=== PATIENT | male | born 1945 | race Caucasian/White ===

== ENCOUNTER → 2019-08-06 13:08 | Outpatient (CLI) | payer OTHER, SELFPAY ==
--- NOTE | 2019-08-06 | DI.MRI.S_ITS ---
PROCEDURE: MR SHOULDER RT WO CON INDICATIONS: Other specific arthropathies, not elsewhere classi TECHNIQUE: Noncontrast oblique coronal T2 fast spin echo with fat saturation, oblique sagittal T1 spin echo and T2 fast spin echo with fat saturation, axial T1 spin echo and T2 fast spin echo with fat saturation through the shoulder. COMPARISON: [facility], CR, XR SHOULDER 2+ VIEWS RIGHT, 07/18/2019, 12:06. [facility], CR, XR SHOULDER 2+ VIEWS RIGHT, 03/19/2019, 19:23. [facility], MR, SHOULDER WITHOUT CONTRAST, 04/18/2017, 10:46. FINDINGS: Image quality: Diagnostic. Rotator cuff: The supraspinatus tendon is completely torn and retracted beyond the level of the glenoid with corresponding muscle atrophy. The infraspinatus tendon is nearly completely torn with a few intact fibers along the posterior/inferior infraspinatus tendon present adjacent to the teres minor tendon. There is moderate infraspinatus muscle atrophy. The teres minor muscle and tendon are within normal limits. There is high grade articular surface partial thickness tearing of the distal subscapularis tendon. A full-thickness component near the rotator interval is suspected. There is corresponding mild subscapularis muscle atrophy. Bones and bursae: No acute fracture or dislocation is identified. No suspicious osseous lesions are present. Mild posterior subluxation of the humeral head with respect to the glenoid is present. There moderate degenerative changes of the glenohumeral joint. There is a moderate glenohumeral joint effusion that communicates with the subacromial subdeltoid bursa. Severe degenerative changes of the acromioclavicular joint are present. Capsule and soft tissues: Evaluation of the labrum and glenohumeral ligaments is suboptimal without intra-articular contrast. However, there is a small posterosuperior labral tear identified that extends from at least the 12 o'clock position to the 2 o'clock position. An additional posteroinferior labral tear may be present. No large paralabral cysts are evident. The long head of the biceps tendon is completely torn and retracted beyond the [id number] and beyond to the bicipital groove. There is slight increased signal about the inferior glenohumeral ligament. IMPRESSION: 1. Interval complete supraspinatus tendon tear with prominent retraction and associated muscle atrophy. 2. Near-complete infraspinatus tendon tear. A few intact fibers near the teres minor tendon are present. There is an interstitial/delaminating component to this tear. 3. High-grade partial-thickness tear of the subscapularis tendon with a probable small full-thickness tear near the rotator interval. 4. Moderate to severe degenerative changes of the right shoulder joints. 5. Small posterosuperior labral tear. Additional material on the posteroinferior labrum may be present. 6. Full-thickness tear of the long head of the biceps tendon with prominent distal retraction and beyond the [id number]. 7. Glenohumeral joint effusion. 8. Edema about the inferior glenohumeral ligament may be related to a ligamentous sprain. However, clinical correlation to exclude the possibility of adhesive capsulitis is recommended. Dictated by: Anderson Cavazos M.D. on 08/06/2019 at 14:23 Approved by: Anderson Cavazos M.D. on 08/06/2019 at 14:28
== END ==
PROVIDERS: Referring Provider Orthopaedic Surgery; Visit Provider Orthopaedic Surgery
DX: M12.811 Other specific arthropathies, not elsewhere classified, right shoulder (principal); M75.121 Complete rotator cuff tear or rupture of right shoulder, not specified as traumatic; S43.431A Superior glenoid labrum lesion of right shoulder, initial encounter; S46.111A Strain of muscle, fascia and tendon of long head of biceps, right arm, initial encounter; M25.411 Effusion, right shoulder; R60.0 Localized edema
CPT/HCPCS: 73221

== ENCOUNTER → 2019-11-15 11:19 | Outpatient (CLI) | payer OTHER, SELFPAY | PROVIDERS: Referring Provider Orthopaedic Surgery; Visit Provider Orthopaedic Surgery | DX: Z01.818 Encounter for other preprocedural examination (principal); M75.121 Complete rotator cuff tear or rupture of right shoulder, not specified as traumatic | CPT/HCPCS: 93005 ==

== ENCOUNTER → 2020-01-22 15:27 | Outpatient (CLI) | payer OTHER, SELFPAY ==
[2020-01-22 15:55] LABS: Add Manual Diff / Slide Review NO; Basophils Absolute Auto 100 /uL (0-100); Basophils Percent Auto 0.6 % (0-2); Eosinophils Absolute Auto 200 /uL (0-450); Eosinophils Percent Auto 2.4 % (2-4); Hematocrit 44.7 % (41-53); Hemoglobin 15.1 g/dL (13.5-17.5); Lymphocytes Absolute Auto 1800 /uL (1100-4500); Lymphocytes Percent Auto 21.2 % (25-40); Mean Corpuscular HGB Conc 33.7 % (30-36); Mean Corpuscular Hemoglobin 30.7 PG (26-34); Monocytes Absolute Auto 500 /uL (0-900); Monocytes Percent Auto 6.1 % (3-14); Neutrophils Absolute Auto 6000 /uL (1500-7000); Neutrophils Percent Auto 69.7 % (50-75); Platelet Count 217 X10^3/uL (150-400); Red Blood Cell Count 4.91 X10^6/uL (4.5-5.9); Red Cell Distribution Width 13.9 % (11.6-14.8); White Blood Cell Count 8.6 X10^3/uL (4.5-11.0)
[2020-01-22 17:04] LABS: BUN Creatinine Ratio 16.5 (6-22); Blood Urea Nitrogen 18 mg/dL (9-20); Calcium 9.5 mg/dL (8.4-10.2); Carbon Dioxide 24 mmol/L (22-32); Chloride 103 mmol/L (98-107); Estimated Glomerular Filt Rate > 60.0 mL/min (>60); Glucose 234 mg/dL (80-110); HEMOLYSIS < 15 (0-50); Potassium 4.4 mmol/L (3.4-5.1); Sodium 136 mmol/L (137-145)
== END ==
PROVIDERS: Referring Provider Orthopaedic Surgery; Visit Provider Orthopaedic Surgery
DX: Z01.812 Encounter for preprocedural laboratory examination (principal)
CPT/HCPCS: 36415; 80048; 85025

== ENCOUNTER → 2020-01-31 08:22 | Outpatient (CLI) | payer OTHER, SELFPAY ==
[2020-02-01 18:21] LABS: COVID19 Sendout Not Detected (Not Detect)
== END ==
PROVIDERS: Visit Provider Physician Assistant
DX: Z11.9 Encounter for screening for infectious and parasitic diseases, unspecified (principal)
CPT/HCPCS: 87635

== ENCOUNTER 2020-02-03 06:06 | Inpatient (IN) | payer OTHER, SELFPAY ==
[2020-01-28 13:25] VITALS: BMI 29.6
[2020-02-03] VITALS (14 sets, daily range): BP systolic 113–142; BP diastolic 58–81; PULSE 69–83; RESP 16–19; TEMP 36.1–36.6; O2SAT 19–98; BMI 27.6
--- NOTE | 2020-02-03 06:00 | DI.RAD.S_ITS ---
PROCEDURE: XR SHOULDER RT 1V INDICATIONS: post op total shoulder TECHNIQUE: Single views of the shoulder were acquired. COMPARISON: None. FINDINGS: Bones: No fractures or dislocations. No suspicious bony lesions. Visualized ribs appear intact. Postsurgical changes related to reverse polarity shoulder arthroplasty. Overlying postsurgical changes. IMPRESSION: Expected postoperative appearance Dictated by: Savage Thomas M.D. on 02/03/2020 at 11:39 Approved by: Savage Thomas M.D. on 02/03/2020 at 11:40
[2020-02-03] MEDS: ACETAMINOPHEN 325 MG TABLET 975 MG PO ×3 (07:10→20:31)
[2020-02-03] MEDS: PREGABALIN 75 MG CAPSULE PO (07:11)
[2020-02-03] MEDS: CELECOXIB 200 MG CAPSULE PO (07:11)
--- NOTE | 2020-02-03 07:30 | PM.PREOP ---
Pre-operative Note COVID-19 COVID-19 status: Negative Result date/Date tested (Pos, Neg/Pending): 01/31/20 Interval Note History & Physical reviewed/Exam performed by Physician: Yes Changes to H&P: No
--- NOTE | 2020-02-03 07:46 | SUR.PREOP ---
Block start time [0744] . Monitoring initiated and maintained throughout procedure. Oxygen and medications given per anesthesiologist instructions. Patient remained stable throughout procedure, no adverse reactions noted. Block end time [0746].
[2020-02-03] MEDS: LACTATED RINGERS 1,000 ML 42 ML IV (07:50)
[2020-02-03] MEDS: CEFAZOLIN 2 GM/100 ML FROZ.PIGGY IV (07:50)
[2020-02-03] MEDS: TRANEXAMIC ACID 1,000 MG VIAL 1000 MG INJ (08:11)
--- NOTE | 2020-02-03 08:22 | SUR.OPER ---
Beach chair with Schlein shoulder positioner. Lower body on padded OR bed. Head in foam padded head cradle, secured with straps. Non-operative arm secured <90 degrees abduction. Pillow under knees. Safety belt at thigh. Cloth tape over blanket over lower legs.
[2020-02-03] MEDS: BUPIVACAINE 0.5% W/ EPI (PF) 30 ML VIAL INJ (08:32)
--- NOTE | 2020-02-03 08:49 | PM.PROC.1 ---
Procedures Date/Time Date of procedure: 02/03/20 Time of procedure: 07:40 General Procedure description: Ultrasound guided interscalene brachial plexus nerve block for post op pain control after right total shoulder arthroplasty by Dr. Roach. Risk and benefits of procedure discussed with patient. ASA monitoring applied to patient. O2 given via nasal cannula. 2 mg Versed given for procedural sedation. Skin site was prepped with chlorhexidine and allowed to fully dry. Sterile gloves, mask, hat and probe cover were used to maintain sterility. 2% lidocaine and 30ga needle was used to make a small skin wheal at needle insertion site. Under ultrasound guidance, a 21ga 50mm Pajunk needle was directed into the interscalene groove (middle/anterior scalenes) near the brachial plexus. Patient reported no parasthesias. After negative aspiration, 20 mL 0.5% ropivicaine and 10mg dexamethasone were injected around brachial plexus. Patient tolerated procedure well.
--- NOTE | 2020-02-03 09:52 | PM.OP.1 ---
Operative Date/Time/Diagnoses Date of procedure: 02/03/20 Time of procedure: 09:52 Pre-op diagnosis: Massive irreparable chronic right rotator cuff tear with early rotator cuff arthropathy Post-op diagnosis: same Procedure & Clinicians Procedure: Right reverse total shoulder replacement Same procedure as scheduled: Yes Indications: The patient is had chronic right shoulder pain unresponsive to nonoperative therapies. Radiographic studies have revealed changes consistent with a massive rotator cuff tear and arthritis. They have elected to proceed with reverse total shoulder replacement after discussion of the risks benefits and alternatives. Risks discussed included but were not limited to: Failure to improve, instability, infection, nerve damage, deep venous thrombosis, pulmonary embolism, stroke, coma, myocardial infarction and . Surgeon: Real Roach Independent Video Producer: Jin Arce Click Yes if Unassisted: No Anesthesia Type: General, Peripheral nerve block and Local Operative Notes Findings: Massive rotator cuff tear of subscapularis, supraspinatus and infraspinatus with early arthritic change and secondary bone remodeling of the greater tuberosity. Closure Type: primary Specimen(s): none sent Prosthetic devices, grafts, tissues, transplants, or devices: Implants used in this procedure were manufactured by the [employer] and included an RSP reverse total shoulder system with a 30 mm glenoid base plate, 4 locking screws measuring 38, 26, 22 and 14 mm in length, a 32 mm neutral glenoid head with retaining screw, a 12 mm humeral stem and a 32 mm +4 semi constrained humeral socket insert. Applied: drain(s) and implant(s) Estimated Blood Loss (mL): 200 Blood products transfused: none Procedure in detail: The patient was seen in the preoperative area where they identified the right shoulder as the operative site and this was marked with my initials. They received preoperative antibiotics and underwent the induction of an interscalene block. They were taken to the operating room and placed on the operating room table in a supine position with the underwent the induction of a general anesthetic. There were then repositioned in the ?beach chair? position using a dedicated positioner. All pressure points were well padded. The knees were slightly bent to prevent tension on the sciatic nerves. The right arm was prepared from the fingertips to the base of the neck with ChloraPrep in the usual fashion and draped through sterile drapes. An approximately 15 cm incision was created starting at the clavicle just above the coracoid and going to the deltoid insertion. The deltopectoral interval was used to access the shoulder taking the vein to the medial side. The vein was protected throughout the case. The upper 1 cm of the pectoralis major was released. The bicepital groove was identified and used as a guide to releasing the anterior scar tissue. The biceps itself had ruptured. The subscapularis had previously completely ruptured. The shoulder was dislocated and a proximal humeral osteotomy performed using an extramedullary guide. A proximal humeral protector was then placed. Retractors were placed access the glenoid. A 360 degree release was performed of the glenoid tissues with care being taken to protect the axillary nerve. The guide was used to drill the guide hole in the center of the inferior glenoid. The tap was placed and used as a guide for the reamer. The tap was then removed and the glenoid base plate inserted. The glenoid bone was very soft and the central screw did strip. The peripheral locking screws were then placed through the appropriate guide, and this provided adequate fixation. A trial glenoid head was applied. We then turned our attention to the humerus. The proximal humeral protector was removed. Cylindrical reamers were used to size the canal. Broaching was then performed beginning with a small broach and working up until a line to line fit with the reamer was obtained. The guide for the proximal metaphyseal reamer was then applied and the metaphysis was reamed appropriately. The trial metaphyseal portion of the body was then applied to the broach. Trial reductions were performed and the size of the glenoid head and the cup were optimized. Stability was checked in maximal internal and external rotation and range of motion was checked to allow access to the top of the head, internal rotation to an excess of 50? in the ?scarecrow position? and the ability to reach the groin. The appropriate final prosthetic components were then opened. The glenoid head was impacted into position and checked for rotational and axial stability before placing the set screw. The humeral prosthetic was then impacted into position. The humeral cup was placed. The joint was relocated and irrigated. A deep drain was placed. The deltopectoral interval was reapproximated with 0 Vicryl. Subcutaneous layer was closed with interrupted 3-0 Vicryl and skin with a running 3 0 V lock suture. Subcutaneous tissues were then infiltrated with 0.5% Marcaine for postoperative pain control. An [employer] dressing was applied and the patient's arm was placed in a sling. The patient was then transferred to the recovery room in good condition having tolerated the procedure well. Complications: none Post-operative Condition: stable Disposition: PACU Plan for aftercare: The patient will be allowed to do pendulum exercises only for the 1st 6 weeks due to the tenuous fixation of the glenoid. He will then be initiated on active elevation.
[2020-02-03] MEDS: LACTATED RINGERS 1,000 ML 125 ML IV ×2 (10:37→19:01)
--- NOTE | 2020-02-03 14:54 | PT.IIE ---
Current Diagnoses Unspecified rotator cuff tear or rupture of right shoulder, not specified as traumatic (02/03/20) Surgery Performed Operation Date: 02/03/20 07:45 Actual Procedures p Total Shoulder Arthroplasty - Reverse(Right) - Real Roach MD Surgical History (Last Updated 01/28/20 @ 14:38 by Lenka Remy RN) History of vasectomy (Acute) Hx of arthroscopy of shoulder (Acute) Hx of bilateral cataract extraction (Acute 2020) Hx of LASIK (Acute) Hx of sinus surgery (Acute) Medical History (Last Updated 01/28/20 @ 14:38 by Lenka Remy RN) Arthritis (Acute) Diabetes (Acute) HLD (hyperlipidemia) (Acute) HTN (hypertension) (Acute) Seasonal allergies (Acute) Physical Therapy Inpatient Evaluation/Re-Eval M1 PT/OT-IP Prior Functional Status Start: 02/03/20 13:16 Freq: NEEDED Status: Active Protocol: Document 02/03/20 14:36 AW (Rec: 02/03/20 14:54 AW [id number]) Medical Review Prior Functional Status Medical History Reviewed Yes Communication WNL. Pt is an effective verbal communicator Mobility and Gait WNL. Pt is an independent community ambulator. He is right-handed. Activities of Daily Living and IADL's IND Prior Functional Level (Other details) Pt is an active driver trainee Social History Household Members spouse,family Living Arrangements Mobile home Number of Floors (Floors) One Floor Number of Stairs To Enter/Railing? 4 TAISHA with L rail ascending Home Environment Standard Height Toilet,High Toilet,Walk in Shower Home Equipment Straight Cane,Hand Held Shower Employment Status Retired Additional Social History Comment Pt is a [place] who lives with his , Erica, and their daughter, Jasmyn. Pt's 8 and 3-yo grandchildren also live with him. M2 PT-IP Current Condition Start: 02/03/20 13:16 Freq: NEEDED Status: Active Protocol: Document 02/03/20 14:36 AW (Rec: 02/03/20 14:54 AW [id number]) Physical Therapy Current Condition Current Condition Evaluation Date 02/03/20 Treatment Diagnosis s/p reverse R TSA; decreased independence with ADL's Onset Date 02/03/20 Precautions Shoulder Precautions Sling,Internal Rotation to Body,No External Rotation,No Abduction,Pendulums Brace shoulder sling for all OOB tasks and mobility Other Precautions pendulums only for six weeks M3 PT-IP Subjective Start: 02/03/20 13:16 Freq: NEEDED Status: Active Protocol: Document 02/03/20 14:36 AW (Rec: 02/03/20 14:54 AW [id number]) Subjective Physical Therapy Visit Type Type Initial Evaluation Visit Start Time 13:45 Visit Stop Time 14:07 Total Visit Minutes 22 Physical Therapy Visit Comments Patient Comments Pt is feeling good and willing to participate with PT Patient Goals Pt plans to return home with his family Therapy Pain Assessment Pain When Pain Assessed During Mobility Pain Present Pain Present Denied Pain M4 PT-IP Mobility and Gait Start: 02/03/20 13:16 Freq: NEEDED Status: Active Protocol: Document 02/03/20 14:36 AW (Rec: 02/03/20 14:54 AW [id number]) PT-Bed Mobility Assessment Supine to Sit Supine to Sit Contact Guard Assistance Sit to Supine Sit to Supine Standby Assistance Scooting Scooting to Edge of Bed Standby Assistance PT-Transfer Assessment Sit to and From Stand Sit to and from Stand Independent Equipment Transfer Assistive Device Gait Belt Orthotic/Prosthetic Devices or Brace: Yes Transfers Transfer Destination Bed Transfer Technique pt ambulated IND Transfer Ability Level of Assist Standby Assistance Comments Mobility Comments Pt was reclined in bed upon PT arrival. BP 123/67 HR 88. He completed supine to sit CGA and cues to push with his LUE. He was able to sit EOB with and without UE support. He completed sit to stand SBA and ambulated around the room SBA before stopping at the mirror for teaching on proper sling fit. Pt walked to the toilet and transferred to and from SBA to void. Pt then requested return to bed for rest. He transferred back to supine SBA where he was postioned with call light and all needs within reach. Gait Assessment Gait Gait Assistance Required: Standby Assistance Distance (Feet) 30 Able to Maintain Weight Bearing Status Yes During Gait Assistive Devices Assistive Device Gait Belt Gait Deviations General Gait Pattern Decreased Stride Length,Flexed Trunk Factors Limiting Gait Function Factors Limiting Gait Function Limited Range of Motion Stair Climbing Assessment Comments Stair Climbing Comments Not assessed. PT-Balance Assessment Sitting Balance and Reactions Static Sitting Balance Ability Normal Dynamic Sitting Balance Ability Normal Standing Balance and Reactions Static Standing Balance Ability Good Dynamic Standing Balance Ability Good M5 PT-IP Objective Assessments Start: 02/03/20 13:16 Freq: NEEDED Status: Active Protocol: Document 02/03/20 14:36 AW (Rec: 02/03/20 14:54 AW [id number]) Orientation Orientation/Cognition Level of Alertness Alert Orientation Name,Day of Week,Place, Situation Language Function Ability No Deficits Noted Safety Awareness Understands Safety Issues Memory Description No Deficits Noted Gross Range of Motion Upper Extremity ROM Assessment Right Impaired Lower Extremity ROM Assessment Within Functional Limits Strength Upper Extremity Strength Assessment Right Impaired Lower Extremity Strength Assessment Within Functional Limits Comments Strength Comments LUE and BLE grossly 5/5 Coordination Assessment Gross Coordination Gross Coordination WNL Sensation Assessment Sensation Gross Sensation Right UE Impaired Sensation Description Numbness,Tingling Comments Sensation Comments Pt reports tingling in right hand. RUE is otherwise numb. M6 PT-IP Treatment Start: 02/03/20 13:16 Freq: NEEDED Status: Active Protocol: Document 02/03/20 14:36 AW (Rec: 02/03/20 14:54 AW [id number]) Physical Therapy Treatment Exercises Exercises Shoulder Pendulums,Elbow Flexion/Extension,Wrist ROM, Hand ROM Education Education Provided Precautions,Weight Bearing Status,Post-Op Packet,Safety Brace Education [place],Patient Other Treatments Other Treatment Performed Pt was instructed in optimal fit for the shoulder sling using mirror for visual feedback. Pt was able to return teach. Pt was instructed that ortho had ordered pendulums only for the shoulder and to allow only forward/backward pendulum movement. Pt was provided handout on ADL management and AROM for hand, wrist, and elbow. M7 PT-IP Assessment and Plan Start: 02/03/20 13:16 Freq: NEEDED Status: Active Protocol: Document 02/03/20 14:36 AW (Rec: 02/03/20 14:54 AW [id number]) PT Summary Assessment and Plan Potential Rehabilitation Potential Excellent Status of Condition at Evaluation Evolving Summary Impairments ROM,Strength,Sensation,Bed Mobility,Transfers Assessment Summary Lm is a 74 yo man seen for PT evaluation on POD0 following reverse R TSA. He is independent in all regards at baseline. He lives with his , daughter, and grandchildren. He will have assist at home as needed. Pt required CGA for bed mobility and SBA for transfers and gait on evaluation. PT will continue to follow after return of full sensation in RUE. Goals Bed Mobility Goal Standby Assistance Transfer Goal Independent Gait Goal Independent Gait Distance 200 Other Goals - up/down 4 steps with left rail ascending SBA Frequency of Treatment Frequency Of Treatment Twice a Day Treatment Plan Physical Therapy Treatment Plan Bed Mobility Training,Transfer Training,Gait Training, Therapeutic Exercise,Balance Retraining,Post Op Education, Discharge Planning,Hot or Cold Pack Other Recommendations and Next Treatment progress independent gait; Focus assess safety on stairs; review precautions and pendulums; review sling fitting Recommendations To Nursing Amount of Assist Needed Standby Assistance Discharge Recommendations PT Discharge Recommendations Home with Assistance Transportation Needs at Discharge Private Vehicle
--- NOTE | 2020-02-03 17:43 | PC.NURSE ---
Addendum entered by Ligia Ramos R.N. 02/03/20 23:34: Stable post op course. Denies discomfort. Call light w/in reach, bed alarm on for pt safety. Continue w/plan of care. Original Note: Pt sitting in chair, Denies discomfort at this time. Lungs clear, SpO2 98% RA Dsg to right shoulder CDI. Hemavac intact/patent. IVF LR @ 125cc/hr infusing via pump Stable post op course. [place] light w/in lata, pt calls appropriately for needs.
[2020-02-03] MEDS: DOCUSATE 100 MG CAPSULE PO (20:30)
[2020-02-03] MEDS: ASPIRIN EC 81 MG TABLET PO (20:31)
[2020-02-03] MEDS: INSULIN GLARGINE 100 UNIT/ML 3ML PEN 20 UNIT SUBCUT (21:33)
[2020-02-04] MEDS: OXYCODONE IR 5 MG TABLET PO ×3 (00:01→08:22)
[2020-02-04 04:58] VITALS: BP 124/77; PULSE 74; RESP 18; TEMP 36.8; O2SAT 94
[2020-02-04 05:39] LABS: Hematocrit 39.7 % (41-53); Hemoglobin 13.4 g/dL (13.5-17.5); Mean Corpuscular HGB Conc 33.9 % (30-36); Mean Corpuscular Volume 91.5 fL (80-100); Platelet Count 194 X10^3/uL (150-400); Red Blood Cell Count 4.33 X10^6/uL (4.5-5.9); Red Cell Distribution Width 13.7 % (11.6-14.8); White Blood Cell Count 12.7 X10^3/uL (4.5-11.0)
--- NOTE | 2020-02-04 07:22 | P.DS_ITS ---
History of Present Illness History of Present Illness Date Patient Seen: 02/04/20 Time Patient Seen: 07:22 Chief complaint: INPT Narrative: The history and physical are contained in the chart in a previously completed note. Please refer to this note for that information. Discharge Providers Provider Date of admission: 02/03/20 06:06 Discharge Date: 02/04/20 Consults: 02/03/20 06:00 Consult to Anesthesiology Routine Comment: Consulting Provider: Anesthesiologist Reason for consultation: Regional block for post operative pain control 02/03/20 10:31 Consult to Discharge Planning Routine Comment: Consult to Physical Therapy Evaluate & Treat Comment: Pendulums only for the first six weeks Physician Instructions: Evaluate and Treat Discharge provider: Real Roach MD Summary Hospital Course Discharge Diagnosis: Massive irreparable rotator cuff tear with early rotator cuff arthropathy, right shoulder. Hospital Course: Patient was admitted to the hospital and taken directly to the operating room on February 03, 2020 where he underwent a right reverse total shoulder replacement. He was discovered to have soft bone in the glenoid which compromised fixation of the base plate but no specific complications were encountered. Pain control was excellent postoperatively and no postoperative complications occurred. On postoperative day 1 he was pain free and ready for discharge. Status at Discharge Cognitive/behavioral status at discharge: oriented Functional status at discharge: independent ambulation Overall status at discharge: patient is progressing back to baseline Time Spent with Patient Time spent: Less than 30 minutes Exam Vital Signs (past 8 hours): - 02/04/20 04:58 Temperature 98.3 F Pulse Rate 74 Respiratory Rate 18 Blood Pressure 124/77 Pulse Oximetry 94 Oxygen Delivery Method Room Air Oxygen Flow Rate 0 Narrative Exam Narrative: Right shoulder wound is dressed with no drainage on the bandage. Light touch is intact in the radial, ulnar, median, muscular cutaneous and axillary nerve distribution. He can extend his thumb, abduct his thumb, abduct his fingers and can fire his biceps and deltoid. Objective Labs Result Diagrams: 02/04/20 05:25 Labs: Laboratory Results - last 24 hr 02/04/20 05:25 WBC 12.7 H RBC 4.33 L Hgb 13.4 L Hct 39.7 L MCV 91.5 MCH 31.0 MCHC 33.9 RDW 13.7 Plt Count 194 Discharge Assessment & Plan Assessment and Plan Assessment: Stable postoperative day 1 status post right reverse total shoulder replacement. Plan of Treatment: The patient will be discharged home today. Follow up will be in my office in 10-14 days. We will discontinue his drain before discharge. He has been prov ided with a prescription for oxycodone and recommendations for the use of Tylenol and low-dose aspirin for DVT prophylaxis. He has been instructed to use his sling when he is not doing pendulum exercises and to restrict the use of his arm to below shoulder level in front of his body for 6 weeks. Discharge Plan Discharge Plan Patient Disposition: Home Discharge orders & Medications Prescriptions: New acetaminophen 325 mg Tablet 975 mg PO TID 30 Days Qty: 270 RF: 0 aspirin 81 mg Tablet,Delayed Release (Dr/Ec) 81 mg PO BID 42 Days Qty: 84 RF: 0 oxycodone 5 mg Tablet 5 mg PO Q4H PRN (Reason: Pain, Moderate (4-6)) Qty: 40 RF: 0 Continued cholecalciferol (vitamin D3) [Vitamin D3] 2,000 UNIT capsule 1,000 unit PO QDAY Qty: 0 RF: 0 atorvastatin 40 MG tablet 40 mg PO QDAY Qty: 0 RF: 0 Lantus U-100 Insulin 100 unit/mL Solution 20 unit SUBCUT BID RF: 0 cetirizine 10 mg Tablet 10 mg PO DAILY PRN (Reason: Seasonal allergies) RF: 0 losartan 25 mg Tablet 25 mg PO DAILY RF: 0 empagliflozin-metformin 5-1,000 mg Tablet 2 tab PO QAM RF: 0 semaglutide 0.25 mg or 0.5 mg(2 mg/1.5 mL) Pen Injector 0.5 mg SUBCUT QWEEK RF: 0 Follow up/Referrals: Real Roach MD [Physician] - 2 Weeks Discharge Health Status Multidrug resistant organism: No MDRO Diet/Activity/Treatments Diet: Diet as Tolerated and Carb-consistent/Diabetic Activity: You may use your right hand in front of your body below shoulder level. Please wear the sling except for when you are doing pendulum exercises. Cold/Heat Therapy: Apply ice to the right shoulder for 15 minutes of every hour as needed for pain control. Skin/Wound/Dressing Care Report to your healthcare provider any signs of infection, such as:: chills, fever, night sweats, increased pain, unusual drainage and unusual redness Dressing: You may shower with the dressing in place. Leave the dressing intact until follow-up. If the central strip of the dressing becomes saturated with either water or blood, please call the office to have it evaluated. Visit Report/Discharge Packet Instructions: DI for Prescription Opioid Use, DI for Shoulder Replacement Stand Alone Forms: Surgery Discharge
[2020-02-04 07:30] VITALS: O2SAT 96
[2020-02-04 08:00] VITALS: BP 123/63; PULSE 75; RESP 16; TEMP 36.6; O2SAT 96
[2020-02-04] MEDS: LOSARTAN 25 MG TABLET PO (08:20)
[2020-02-04] MEDS: DOCUSATE 100 MG CAPSULE PO (08:22)
[2020-02-04] MEDS: CHOLECALCIFEROL (VITAMIN D3) 1,000 UNIT TABLET 1000 UNIT PO (08:22)
[2020-02-04] MEDS: ACETAMINOPHEN 325 MG TABLET 975 MG PO (08:22)
[2020-02-04] MEDS: ATORVASTATIN 20 MG TABLET 40 MG PO (08:22)
[2020-02-04] MEDS: ASPIRIN EC 81 MG TABLET PO (08:22)
--- NOTE | 2020-02-04 09:35 | PT.IPTN ---
Current Diagnoses Unspecified rotator cuff tear or rupture of right shoulder, not specified as traumatic (02/03/20) Surgery Performed Operation Date: 02/03/20 07:45 Actual Procedures p Total Shoulder Arthroplasty - Reverse(Right) - Real Roach MD Physical Therapy Treatment Note M2 PT-IP Current Condition Start: 02/03/20 13:16 Freq: NEEDED Status: Active Protocol: Document 02/04/20 09:12 TP (Rec: 02/04/20 10:15 TP [id number]) Physical Therapy Current Condition Current Condition Evaluation Date 02/03/20 Treatment Diagnosis s/p reverse R TSA; decreased independence with ADL's Onset Date 02/03/20 Precautions Shoulder Precautions Sling,Internal Rotation to Body,No External Rotation,No Abduction,Pendulums Brace shoulder sling for all OOB tasks and mobility Other Precautions pendulums only for six weeks M3 PT-IP Subjective Start: 02/03/20 13:16 Freq: NEEDED Status: Active Protocol: Document 02/04/20 09:12 TP (Rec: 02/04/20 10:15 TP [id number]) Subjective Physical Therapy Visit Type Type Treatment Note Visit Start Time 09:12 Visit Stop Time 09:35 Total Visit Minutes 23 Notes Student YUSUF Casey supervised by YUSUF Ceja. Number of GREEN BUILDING DESIGN SPECIALIST Visits 1 Physical Therapy Visit Comments Patient Comments Pt is feeling good and willing to participate with PT Patient Goals Pt plans to return home with his family Therapy Pain Assessment Pain When Pain Assessed During Mobility Pain Present Pain Present Denied Pain M4 PT-IP Mobility and Gait Start: 02/03/20 13:16 Freq: NEEDED Status: Active Protocol: Document 02/04/20 09:12 TP (Rec: 02/04/20 10:15 TP [id number]) PT-Bed Mobility Assessment Supine to Sit Supine to Sit Standby Assistance Scooting Scooting to Edge of Bed Standby Assistance PT-Transfer Assessment Sit to and From Stand Sit to and from Stand Independent Equipment Transfer Assistive Device Gait Belt Orthotic/Prosthetic Devices or Brace: Yes Transfers Transfer Destination Chair Transfer Technique pt ambulated IND Transfer Ability Level of Assist Standby Assistance Comments Mobility Comments Pt reclined in bed upon PT arrival. Pt demonstrates good verbal recall of shoulder precautions and pendulum techniqe. Supine to sit on L EOB, SBA. Denied pain with bed mobility. Sitting balance good for donning of gait belt. Sit<>stand SBA. Ambulation into hallway around nurse's station 2x, approximately 425' , SBA-IND. Ascend/descend 3 stairs x2, step to gait pattern on first attempt, step through on second attempt, IND with BLE weakness noted with eccentric control on descent. In room, pt review and education of proper technique for pendulums (flex/ ext), scap retraction, elbow flex/ext, wrist flex/ext and ulnar/radial deviation, finger flex/ext. Stand to sit at chair, IND. Pt donned and doffed sling, with assist to reach strap across back. Review of handout in post-op packet. Pt denied further questions and is ready for discharge. Pt positioned in chair with call light and all other needs in reach. Nursing staff noted of progress and ready to discharge. Gait Assessment Gait Gait Assistance Required: Independent,Standby Assistance Distance (Feet) 425 Able to Maintain Weight Bearing Status Yes During Gait Assistive Devices Assistive Device Gait Belt Gait Deviations General Gait Pattern Decreased Stride Length,Flexed Trunk Factors Limiting Gait Function Factors Limiting Gait Function Limited Range of Motion Comments Gait Comments see mobility comments. Stair Climbing Assessment Evaluation Level of Assist On Stairs Independent Devices Stair Climbing Assistive Devices None Technique/Endurance Stair Climbing Direction Ascend and Descend Stair Climbing Technique Step Over Step,Step to Step Number of Steps Climbed 3 Stair Climbing Set # Repetitions (reps) 2 Comments Stair Climbing Comments Pt ascend/descend 3 stairs x 2 using step-to gait pattern for first rep and step-through gait pattern for second rep. R rail ascending used for descent. PT-Balance Assessment Sitting Balance and Reactions Static Sitting Balance Ability Normal Dynamic Sitting Balance Ability Normal Standing Balance and Reactions Static Standing Balance Ability Good Dynamic Standing Balance Ability Good M5 PT-IP Objective Assessments Start: 02/03/20 13:16 Freq: NEEDED Status: Active Protocol: Document 02/03/20 14:36 AW (Rec: 02/03/20 14:54 AW [id number]) Orientation Orientation/Cognition Level of Alertness Alert Orientation Name,Day of Week,Place, Situation Language Function Ability No Deficits Noted Safety Awareness Understands Safety Issues Memory Description No Deficits Noted Gross Range of Motion Upper Extremity ROM Assessment Right Impaired Lower Extremity ROM Assessment Within Functional Limits Strength Upper Extremity Strength Assessment Right Impaired Lower Extremity Strength Assessment Within Functional Limits Comments Strength Comments RADHA hutton BLE grossly 5/5 Coordination Assessment Gross Coordination Gross Coordination WNL Sensation Assessment Sensation Gross Sensation Right UE Impaired Sensation Description Numbness,Tingling Comments Sensation Comments Pt reports tingling in right hand. RUE is otherwise numb. M6 PT-IP Treatment Start: 02/03/20 13:16 Freq: NEEDED Status: Active Protocol: Document 02/04/20 09:12 TP (Rec: 02/04/20 10:15 TP [id number]) Physical Therapy Treatment Exercises Exercises Shoulder Pendulums,Elbow Flexion/Extension,Wrist ROM, Hand ROM Education Education Provided Precautions,Weight Bearing Status,Post-Op Packet,Safety Brace Education [place],Patient Other Treatments Other Treatment Performed Pt demonstrated good carryover in optimal fit for the shoulder sling . Pt was instructed that ortho had ordered pendulums only for the shoulder and to allow only forward/backward pendulum movement. Pt reviewed handout on ADL management and AROM for hand, wrist, and elbow. M7 PT-IP Assessment and Plan Start: 02/03/20 13:16 Freq: NEEDED Status: Active Protocol: Document 02/04/20 09:12 TP (Rec: 02/04/20 10:15 TP [id number]) PT Summary Assessment and Plan Potential Rehabilitation Potential Excellent Status of Condition at Evaluation Evolving Summary Impairments ROM,Strength,Sensation,Bed Mobility,Transfers Assessment Summary Pt met all physical therapy goals and is ready for discharge home with assistance when medically clear. Goals Bed Mobility Goal Standby Assistance Transfer Goal Independent Gait Goal Independent Gait Distance 200 Other Goals - up/down 4 steps with left rail ascending SBA Frequency of Treatment Frequency Of Treatment Twice a Day Treatment Plan Physical Therapy Treatment Plan Bed Mobility Training,Transfer Training,Gait Training, Therapeutic Exercise,Balance Retraining,Post Op Education, Discharge Planning,Hot or Cold Pack Other Recommendations and Next Treatment Pt met all physical therapy Focus goals and is ready for discharge home with assistance when medically clear. Recommendations To Nursing Amount of Assist Needed Standby Assistance Discharge Recommendations PT Discharge Recommendations Home with Assistance Transportation Needs at Discharge Private Vehicle Note reviewed by Samantha Oden PTA
--- NOTE | 2020-02-04 10:41 | PC.NURSE ---
Day shift: Paperwork signed and all questions answered. Pt has MD script and his personal belonings as well as his home meds from pharmacy. Dressing is CDI. Medicated for pain for car ride home. Taken to car in [place] by this comic writer. His spouse is driving him home.
--- NOTE | 2020-02-04 10:54 | CM.DANOTE ---
Patient is a 74 year old male who was admitted on 02/03/20 for Rotator Cuff Repair. Pt has [facility] for insurance and his PCP is Dr. Krunal Panchal on the [employer]. EMR was reviewed. Per Ortho , pt tolerated procedure well and stable for discharge home with family assist today and no identified barriers to discharge. Per PT, recommending safe d/c home with family assist today after stair training. SW met bedside with pt and explained role and pt confirms that he lives in [place] in a mobile home with his spouse, step Dtr, and 2 grandsons ages 3 and 8. Pt very friendly and talkative about his family and help with caregiving to grandsons and pt quite active and independent at baseline. Pt denies any hx of HH or SNF and DPOA is his spouse. Pt's spouse called while SW bedside and she is agreeable with leaving [place] right now to come provide transport home for the pt. Preference is home and no anticipated needs. Plan: Patient to d/c home this morning via spouse POV and family available for assist. No SW needs at this time. FRANCISCO Nixon Discharge Planning/Care Management CM Discharge Assessment Start: 02/04/20 10:52 Freq: Status: Discharge Protocol: Document 02/04/20 10:52 BF (Rec: 02/04/20 10:54 [id number]) Discharge Planning Assessment Assigned Dealer Sales Rep FRANCISCO Calderon DPOA/Assigned Designee Name spouse Advance Directives? No Advance Directives on File No History Provided By Patient,Medical Record Has Patient been admitted in last 30 No days? Prior Living Arrangements Mobile home Household Members spouse,family Type of transporation used prior to Drives own vehicle admit Independent with ADL's Yes Is patient alert and oriented? Yes Caregiver for Another Yes: has 2 grandsons in the home they help with Community Services used prior to Physical Therapy admission: Patient/Family Preference OP PT Therapy Barriers to Discharge No Discharge Plan Home Community Services Physical Therapy Transportation Arrangement Spouse headed to the hospital to provide transport home Referrals Initiated None needed Whiteboard Updated in Patient Room with Yes name and ext. # of Dealer Sales Rep Review Status In Process Please Provide Date Initial DC 02/04/20 Assessment Was Performed Next Review Type Continued Stay Review Pre-Anesthesia Assessment Start: 01/28/20 13:25 Freq: Status: Discharge Protocol: Document 01/28/20 13:25 CAB (Rec: 01/28/20 14:02 CAB [id number]) Pre-Anesthesia Assessment Preferred Name Don Patient Information Reviewed Via Phone Assessment Assessment Completed With Patient Diagnostic Results BMP/CMP,CBC,EKG Comment Labs 01/22/20, EKG 11/15/19 @ [facility] -COVID screen 01/31/20 Primary Care Provider Deedee Wilkes Seen Specialist in Last 12 Months Yes Specialist Seen Opthamologist/Advertising Dispatch Clerks Supervisor, Orthopedist Primary Language Yi Water Quality Technician Required No Height 172.72 cm Weight 88.451 kg Body Mass Index (BMI) 29.6 Hearing Ability Normal Visual Assist Glasses Dentition Type Partial- Upper & Lower Other Aids No Hx Anesthesia Reactions No Hx Family Anesthesia Reaction No Hx Malignant Hyperthermia No Hx Blood Transfusions No Anesthesia Review Requested No alcohol intake current alcohol intake frequency a few times a month Smoking Status Never smoker Substance Use Type does not use Pain Present Pain Reported Musculoskeletal Symptoms Joint Pain,Limited Range of Motion History of Falling (Recent or History of No ) Patient is completely paralyzed or No completely immobile Mental Status Oriented to own ability Is patient on oxygen? No Does patient have VALDEZ/SOB No Hx Sleep Apnea No Currently Taking a Beta Jonah No Can You Climb a Flight of Stairs Without Yes SOB Hx Chest Pain No Hx SOB No Hx Syncope or Dizziness No Anti-Coagulant Therapy No Has a Design Tech No Cardiac Testing No Hx Pacemaker/ICD No Pacemaker Rep Required? No Cardiac Clearance Received Not Applicable Diet Type At Home Regular dysphagia No Urinary Catheter Present No Hx Urinary Self Catheterization No Diabetes Yes: Pt checks blood sugar twice a day HgbA1C 7.4 Date 08/28/19 Comment [facility] Hx Drug Resistant Organism No Presence of External or Internal Medical Yes: Bilateral eye lens Devices Have you had any close contact with No someone diagnosed with COVID-19? Marital Status Lives With spouse,family Prior Living Arrangements Mobile home Support System Child/Children,Spouse Does the Patient Have Assistance After Yes Surgery Patient Discharge Plan Description Return Home Comment Pt advised overnight length of stay per surgeon Feels Safe in Current Environment Yes Been Physically Hurt or Threatened By a No Person in Current Environment Do you have thoughts of harming yourself None or others? Are you currently considering suicide? No Do you have a plan to hurt yourself or No Plan others? Do You Have Any Spiritual Beliefs That No May Affect Your HC Choices? Do You Have Any Cultural Practices That No May Affect Your HC Choices? Comment Evangelical Who Can We Speak to About Patient's Care Family, friends Identifying Code for Release of Patient Declines to issue Information Health Care Proxy/Next of Kin Erica () Health Care Proxy Emergency Contact Name Erica () Agueda ( daughter) Emergency Contact Phone Number Erica: [phone] Agueda : [phone] Advance Directives? No Power of Executive Associate No PAC Instructions Diabetes instructions,Durable medical equipment,Medications to take/avoid,Nasal antibiotic ,No ETOH/petroleum product on skin DOS,Pre-surgical wash, Sturdy shoes/comfortable clothes,Do not bring valuables and remove jewelry
== END 2020-02-04 10:42 | disposition home or self-care (01) | DRG 483 ==
PROVIDERS: Admitting Provider Orthopaedic Surgery; Referring Provider Orthopaedic Surgery; Visit Provider Orthopaedic Surgery
PROC: 0RRJ00Z Replacement of Right Shoulder Joint with Reverse Ball and Socket Synthetic Substitute, Open Approach (ICD-10-PCS; CPT 23472; principal; 2020-02-03 07:45)
DX: M75.121 Complete rotator cuff tear or rupture of right shoulder, not specified as traumatic (principal); M12.811 Other specific arthropathies, not elsewhere classified, right shoulder; I10 Essential (primary) hypertension; E11.9 Type 2 diabetes mellitus without complications; E78.5 Hyperlipidemia, unspecified; Z79.4 Long term (current) use of insulin; Z11.59 Encounter for screening for other viral diseases
CPT/HCPCS: 36415; 64450; 73020; 82962; 85027; 87635; 97110; 97116; 97161; C1776; J0690; J1100; J2250; J2405; J2704; J3010